=== PATIENT | female | born 1990 | race Caucasian/White ===

== ENCOUNTER 2023-06-13 00:36 | Emergency (ER) | payer MEDICAID, OTHER ==
[~2023-06-13] VITALS: Ht 152.4 cm; Wt 81.6 kg
[2023-06-13 00:50] VITALS: BP_SYST 99; PULSE 111; RESP 19; TEMP 98.4; O2SAT 99
[2023-06-13] MEDS ORDERED: NACL 0.9% 1,000 ML IV ONE (01:00)
[2023-06-13 01:15] LABS: BILIRUBIN,URINE 1+ (NEGATIVE); BLOOD, URINE 3+ (NEGATIVE); CLARITY/URINE CLOUDY (CLEAR); COLOR,URINE YELLOW (YELLOW); GLUCOSE,URINE NEGATIVE (NEGATIVE); KETONES,URINE 1+ (NEGATIVE); LEUKOCYTE ESTERASE ,URINE 3+ (NEGATIVE); NITRITE, URINE POSITIVE (NEGATIVE); PH,URINE 6.5 (5.0-8.0); PROTEIN URINE 2+ (NEGATIVE); UROBILINOGEN,URINE 0.2 (0.2-1.0)
[2023-06-13 01:17] LABS: BACTERIA,URINE MANY /HPF (None Seen); WBC,URINE >100 /HPF (0-3)
[2023-06-13 01:21] LABS: BASOPHILS % (AUTO) 0.2 % (0.0-2.0); HEMATOCRIT 38.6 % (36-48); HEMOGLOBIN 12.8 g/dL (12.0-16.0); LYMPHOCYTES # (AUTO) 0.3 K/uL (1.0-5.5); LYMPHOCYTES % (AUTO) 1.6 % (20.5-51.5); MEAN CORPUSCULAR HEMOGLOBIN 28 pg (27-31); MEAN CORPUSCULAR HGB CONC 33 % (32-36); MEAN CORPUSCULAR VOLUME 85 fL (79.0-98.0); MONOCYTES % (AUTO) 11.2 % (1.7-9.3); NEUTROPHILS # (AUTO) 15.3 K/uL (1.8-7.7); PLATELET COUNT (AUTO) 192 K/uL (130-430); RED BLOOD CELL COUNT(AUTO) 4.55 MIL/uL (4.2-6.2); RED CELL DISTRIBUTION WIDTH 15.3 % (9.0-15.0); WHITE BLOOD COUNT (AUTO) 17.6 K/uL (4.8-10.8)
[2023-06-13 01:44] LABS: ALBUMIN 2.5 g/dL (3.4-4.8); CALCIUM 8.5 mg/dL (8.4-11.0); CREATININE 1.07 mg/dL (0.55-1.30); TOTAL BILIRUBIN 0.6 mg/dL (0.0-1.0); TOTAL PROTEIN, SERUM 7.2 g/dL (6.4-8.3)
[2023-06-13] MEDS ORDERED: KETOROLAC TROMETHAMINE 30 MG VIAL IVP ONE (01:45)
[2023-06-13] MEDS ORDERED: cefTRIAXone 2 GM VIAL ONE (01:54)
[2023-06-13] MEDS ORDERED: CIPR500T5 PO (02:08)
[2023-06-13 02:30] VITALS: BP_SYST 113; PULSE 93; RESP 20; TEMP 97.1; O2SAT 99
[2023-06-13 02:32] LABS: POTASSIUM 2.7 mmol/L (3.5-5.1)
[2023-06-13] MEDS ORDERED: POTASSIUM CHLORIDE 20 MEQ TAB.PRT.SR PO ONE (02:45)
[2023-06-13] MEDS ORDERED: POTASSIUM CHLORIDE 20 MEQ TAB.PRT.SR ONE (02:47)
== END 2023-06-13 02:31 | disposition home or self-care (01) ==
LOC: SED 00:36
DX: N10 Acute pyelonephritis (principal); R10.9 Unspecified abdominal pain; R50.9 Fever, unspecified; Z79.899 Other long term (current) drug therapy
CPT/HCPCS: 99284; 96365; 96361; 96375; 80053; 81000; 85025; 87040; 87086; 36415; 81025; 83605; J0696; J1885; J7030